=== PATIENT | male | born 1965 | race African-American/Black ===

== ENCOUNTER 2016-05-12 05:17 | Inpatient (IN) | payer OTHER ==
[2016-04-20 13:32] LABS: URINE BILIRUBIN 1+ (Negative); URINE BLOOD NEGATIVE (Negative); URINE COLOR YELLOW; URINE GLUCOSE-RANDOM* NEGATIVE (Negative); URINE KETONES TRACE (Negative); URINE LEUKOCYTES-REFLEX TRACE (Negative); URINE PROTEIN (DIPSTICK) TRACE (Negative); URINE SPECIFIC GRAVITY 1.025 (1.003-1.035)
[2016-04-20 13:33] LABS: HEMATOCRIT 34.5 % (42.0-52.0); HEMOGLOBIN 11.4 gm/dL (14.0-18.0); MCH 29.8 pg (26.0-34.0); MCV 90.3 fL (80.0-100.0); RBC 3.82 mil/uL (4.50-6.00); WBC 4.3 thou/uL (4.0-11.0)
[2016-04-20 13:35] LABS: ICTOTEST (BILI CONFIRMATORY) Positive (Negative)
[2016-04-20 13:43] LABS: ALBUMIN 3.6 g/dL (3.4-5.0); CALCIUM 9.1 mg/dL (8.5-10.1); POTASSIUM 3.7 mmol/L (3.5-5.1)
[2016-04-20 13:53] LABS: INR 1.1; PROTIME 11.6 Seconds (9.3-11.4)
[~2016-05-12] VITALS: Ht 190.5 cm; Wt 120.2 kg
--- NOTE | ~2016-05-12 | O ---
[facility] [place] [address] OPERATIVE REPORT Name: LILIYA JONES Room #: 547-P [facility] IN M.R.#: [id number] Admission: 05/12/16 Attend Phys: Nic Alaniz MD Discharge: 05/16/16 Date of : 65 Report #: [id number] THIS REPORT FOR: //name// CC: Juan Alaniz MD DATE OF SERVICE: 05/12/2016 PREOPERATIVE DIAGNOSES: 1. Left knee degenerative joint disease with severe varus deformity. 2. Obesity, body mass index 35.09. POSTOPERATIVE DIAGNOSES: 1. Left knee degenerative joint disease with severe varus deformity. 2. Obesity, body mass index 35.09. PROCEDURE: Left knee total knee arthroplasty. SURGEON: Nic Alaniz MD. THAI MASSEUR: Nitesh Verduzco, nurse practitioner. INDICATIONS FOR THAI MASSEUR: During the course of operation, extensive manipulation, retraction and limb positioning was required. This was essentially important in light of the patient's size, which required extra time for the procedure. ANESTHESIA: General. INDICATIONS: See hospital H and P. IMPLANTS UTILIZED: Used a DePuy knee system. We used a Sigma posterior stabilized size 6 femur, a size 5 tibia 10 mm insert and a 41 mm oval dome patella. DESCRIPTION OF PROCEDURE: After adequate general anesthesia had been obtained, the patient's left lower extremity was prepped and draped in the usual meticulous sterile fashion. Limb was exsanguinated with gravity and tourniquet inflated to 350 torr. An anterior midline incision was made, subQ divided sharply. Hemostasis obtained with electrocautery. Medial parapatellar incision was made. Medial release performed. Extensive osteophytes were removed with combination of the osteotome and rongeur. We drilled the distal femur. This hole was enlarged, irrigated, suctioned, and the intramedullary guide placed the full length of the femur. The distal femoral cutting guide was pinned at appropriate rotation and we did take additional 2 mm due to the patient's severe flexion deformity and the distal femoral cut was made. The measuring device [address] [id number] OPERATIVE REPORT Name: LILIYA JONES Room #: 547-P [facility] IN M.R.#: [id number] Admission: 05/12/16 Attend Phys: Nic Alaniz MD Discharge: 05/16/16 Date of : 65 Report #: [id number] determined a size 6 was appropriate size for this patient. We marked the distal femur, impacted the cutting guide into place and the anterior, posterior and chamfer cuts were made. We then meticulously spent time removing bone from the posterior aspect of the femur utilizing a curved osteotome and curette to carefully tease the bone out of the posterior compartment. The tibia was addressed. It was translated anteriorly. Menisci were excised. The drill was used to drill central portion of the tibia. This was enlarged, irrigated and suctioned and the intramedullary guide placed the full length of the tibia. The patient has significant erosion of the medial tibial plateau, so I elected to remove just enough to where we flatten the medial plateau and got a good flat cut on the top of tibia. A size 5 tray gave us the best coverage. It was clear the patient still had a severe flexion contracture and it was very tight medially. Lamina spreaders were then placed into the joint and I did a combination of distal MCL release and pie crusting to release the medial side to achieve balance. We then put the trial components in position and the patient had much improved balance and was able to get him out to near full extension and perhaps -3 degrees of extension. We then put the box cutting device in place with a posterior stabilized component and the box cut was made. We trialled and were happy with the position of the implants and the balance. The patella was then addressed. It was measured, cutting guide clamped into place, patellar cut was made. A 41 template gave us the best coverage. Pedicles were drilled, trial component put in position, it tracked normally. We marked the tibial tray rotation. The trial components were removed. The tibial keel cuts were made. We irrigated the knee with both pulse lavage and antibiotic irrigation. Bone plugs were placed in proximal tibia. The cement was vacuum mixed. The knee was thoroughly dried and then when the cement reached the appropriate consistency, the tibial tray was cemented in place, the femur was cemented in place and then, excess cement was removed and then the polyethylene liner was then put into position. The knee was taken out to 30 degrees of flexion, uniform compression placed across components. Patellar button was then cemented into place and again, excess cement was removed. The cement was allowed to fully cure. When it had done so, the knee was then irrigated, dried thoroughly and inspected. Drains were placed superolaterally both deep and superficial. The retinacular layer closed with combination of interrupted [id number] #1 Vicryl as well as running #1 Tevdek. SubQ closed with 2-0 Monocryl, skin closed in multiple layers due to the patient's size with venkatesh. Sterile compressive dressing applied. Tourniquet deflated. <ELECTRONICALLY SIGNED> By: Nic Alaniz MD 06/05/16 0731 [id number] Nic Alaniz MD /kirill
--- NOTE | ~2016-05-12 | O ---
[facility] [place] [address] [place] [address] OPERATIVE REPORT Name: LILIYA JONES Room #: 547-P [facility] IN M.R.#: [id number] Admission: 05/12/16 Attend Phys: Nic Alaniz MD Discharge: 05/16/16 Date of : 65 Report #: [id number] THIS REPORT FOR: //name// CC: Juan Alaniz PREOPERATIVE DIAGNOSIS: Left knee retained drain, status post total knee arthroplasty. POSTOPERATIVE DIAGNOSIS: Left knee retained drain, status post total knee arthroplasty. OPERATIVE PROCEDURE: Left knee irrigation, debridement and drain removal. SURGEON: Nic Alaniz M.D. STRATEGY LEAD: Nitesh Verduzco, nurse practitioner. INDICATIONS FOR STRATEGY LEAD: During the course of operation, manipulation, retraction and limb positioning was required. This was afforded to me by my registered dental assistant rda. ANESTHETIC: General. INDICATIONS: See hospital progress note. DESCRIPTION OF PROCEDURE: After adequate general anesthesia had been obtained, the patient's left lower extremity was prepped and draped in the usual meticulous sterile fashion. Limb was exsanguinated with gravity, tourniquet inflated to 350 torr. His previously made incision was reopened. We had removed the venkatesh prior to the prep. The sutures were removed. We opened the proximal portion of his wound and the drain was readily identified and removed. We then irrigated the knee copiously with both pulse lavage and antibiotic irrigation. We reapproximated the retinacular layer with a combination of #1 Vicryl and a running #1 Tevdek. SubQ was closed with 2-0 Monocryl, skin closed with venkatesh. Sterile compressive dressing was again applied. We used a Prevena dressing to prevent postoperative formation. After the dressing was applied, the tourniquet was deflated. <ELECTRONICALLY SIGNED> By: Nic Alaniz MD 06/05/16 0731 [id number] Nic Alaniz MD /nt
--- NOTE | ~2016-05-12 | H ---
[facility] [place] [place] [address] HISTORY AND PHYSICAL Name: LILIYA JONES Room #: 547-P [facility] IN M.R.#: [id number] Admission: 05/12/16 Attend Phys: Nic Alaniz MD Discharge: 05/16/16 Date of : 65 Report #: [id number] THIS REPORT FOR: //name// For History and Physical, please see office documentation/handwritten note in the patient's medical record. <ELECTRONICALLY SIGNED> By: Nic Alaniz MD 06/05/16 0731 1129 Nic Alaniz MD /
[~2016-05-12 05:17] MED LIST: AMBIEN 10 MG TA10 MG PO; DICLOFENAC SODI75 MG PO; HUMIRA10 MG/0.2 SQ; HYDROCODONE-ACE15 ML PO; LISINOPRIL-HCT1 EAC2 PO; LOPRESSOR25 PO; METHOTREXA1 GM/40 M1 IM; METOPROLOL SUCC50 MG PO; MINIPRESS2 MG PO; MUCINEX DM TABL1 TA1 PO; MULTIVITAMINS1 EAC7 PO; NEURONTIN 300300 M1 PO; TRAMADOL 50 MG50 MG PO; VITAMIN B-12500 MC4 PO; ZOFRAN ODT4 MG; ZPAK PO
[2016-05-13 04:55] LABS: HEMATOCRIT 30.6 % (42.0-52.0); HEMOGLOBIN 10.1 gm/dL (14.0-18.0); MCH 30.3 pg (26.0-34.0); MCV 91.6 fL (80.0-100.0); RBC 3.35 mil/uL (4.50-6.00); RDW 15.9 % (10.5-14.5); WBC 5.7 thou/uL (4.0-11.0)
[2016-05-14 05:50] LABS: HEMATOCRIT 29.2 % (42.0-52.0); HEMOGLOBIN 9.6 gm/dL (14.0-18.0); MCH 30.3 pg (26.0-34.0); MCHC 32.9 g/dL (28.0-37.0); RBC 3.17 mil/uL (4.50-6.00); RDW 15.5 % (10.5-14.5); WBC 7.6 thou/uL (4.0-11.0)
[2016-05-15 06:35] LABS: HEMATOCRIT 25.5 % (42.0-52.0); HEMOGLOBIN 8.4 gm/dL (14.0-18.0); MCV 90.7 fL (80.0-100.0); RBC 2.82 mil/uL (4.50-6.00); RDW 15.4 % (10.5-14.5); WBC 7.6 thou/uL (4.0-11.0)
[2016-05-16] MEDS ORDERED: XARELTO10 MG PO (09:28)
[2016-05-16] MEDS ORDERED: PERCOCET 10-321 EACH PO (09:29)
[2016-05-16 12:29] LABS: HEMATOCRIT 24.8 % (42.0-52.0); HEMOGLOBIN 8.4 gm/dL (14.0-18.0); MCH 30.4 pg (26.0-34.0); MCHC 33.7 g/dL (28.0-37.0); MCV 90.4 fL (80.0-100.0); RBC 2.74 mil/uL (4.50-6.00); RDW 14.5 % (10.5-14.5); WBC 7.2 thou/uL (4.0-11.0)
== END 2016-05-16 15:15 | disposition home health service (06) | DRG 470 ==
LOC: 5S 05:17 → TBA 05:17 → PRE 08:05 → 5S 13:01 → PRE 13:38 → 5S 05-16 15:15
PROVIDERS: Nurse Practitioner Family; Orthopaedic Surgery
PROC: 0SRD0J9 Replacement of Left Knee Joint with Synthetic Substitute, Cemented, Open Approach (ICD-10-PCS; principal; 2016-05-12)
PROC: 0JDP0ZZ Extraction of Left Lower Leg Subcutaneous Tissue and Fascia, Open Approach (ICD-10-PCS; 2016-05-14)
DX: M17.12 Unilateral primary osteoarthritis, left knee (principal); D62 Acute posthemorrhagic anemia; I10 Essential (primary) hypertension; E11.9 Type 2 diabetes mellitus without complications; Z79.899 Other long term (current) drug therapy; Z90.3 Acquired absence of stomach [part of]; G47.30 Sleep apnea, unspecified
CPT/HCPCS: 10785; 50010; 50101; 50386; 50415; 50612; 50915; 50953; 50954; 51130; 51225; 51320; 51412; 51771; 52001; 52282; 53000; 53078; 53337; 53364; 56525; 56527; 57091; 62110; 62900; 70005

== ENCOUNTER → 2016-06-18 | Outpatient (CLI) | payer OTHER ==
[~2016-06-18] MED LIST changes: +PERCOCET 10-321 EACH PO; +XARELTO10 MG PO
== END ==
LOC: ULTRA 11:54
DX: R59.1 Generalized enlarged lymph nodes (principal)

== ENCOUNTER → 2018-05-25 | Outpatient (CLI) | payer OTHER | LOC: CAT 10:34 | DX: Z13.6 Encounter for screening for cardiovascular disorders (principal); E78.00 Pure hypercholesterolemia, unspecified; Z82.49 Family history of ischemic heart disease and other diseases of the circulatory system ==

== ENCOUNTER → 2020-11-19 | Outpatient (CLI) | payer OTHER | LOC: CAT 10:12 | PROVIDERS: ATTEND Internal Medicine | DX: Z13.6 Encounter for screening for cardiovascular disorders (principal); E78.00 Pure hypercholesterolemia, unspecified; I25.10 Atherosclerotic heart disease of native coronary artery without angina pectoris ==